=== PATIENT | female | born 1955 | race Two or more races ===

== ENCOUNTER 2024-07-01 11:39 | Outpatient (CLI) | payer OTHER | END 2024-07-02 08:23 | disposition home or self-care (01) | LOC: SONOGRAMA 11:39 | PROVIDERS: ATTEND Pathology Anatomic Pathology & Clinical Pathology | DX: E04.1 Nontoxic single thyroid nodule (principal) ==

== ENCOUNTER 2024-08-12 11:02 | Outpatient (CLI) | payer OTHER | END 2024-08-12 11:05 | disposition home or self-care (01) | LOC: SONOGRAMA 11:02 | PROVIDERS: ATTEND Pathology Anatomic Pathology | DX: E04.1 Nontoxic single thyroid nodule (principal) ==